=== PATIENT | male | born 1955 | race Caucasian/White ===

== ENCOUNTER 2017-07-25 09:57 | Day surgery (SDC) | payer BC, OTHER ==
[~2017-07-25 09:57] MED LIST: Lactated Ringers 1,000 ML IV SCH
[2017-07-25] MEDS ORDERED: fentaNYL 100 MCG/2 ML SDV ONE (10:32)
[2017-07-25] MEDS ORDERED: Propofol 200 MG/20 ML SDV ONE (10:32)
--- NOTE | 2017-07-25 18:42 | OR ---
PREOPERATIVE DIAGNOSIS: Upper esophageal mid throat discomfort. POSTOPERATIVE DIAGNOSIS: Upper esophageal mid throat discomfort. PROCEDURE PERFORMED: EGD. INDICATIONS: The patient is a 61-year-old male who has history of intermittent reflux disease. He also seems to have symptoms in the mid throat, upper esophagus, which he describes is an irritation, presents for EGD for further evaluation. PROCEDURE IN DETAIL: Done in the procedure room, sedation was given per anesthesia. The scope was introduced into this pharynx across the esophagus, into the stomach across the pylorus, into the first and second portion of the duodenum. The first and second portions of duodenum were normal. Scope was slowly withdrawn and retroflexed. Stomach itself was normal. GE junction was normal. No evidence of hiatal hernia. Scope was slowly withdrawn. There was moderate esophagitis at the level of the GE junction. The scope was withdrawn. The remainder of the way, the upper esophagus looked normal. FINAL DIAGNOSIS: Esophagitis. PLAN: At this point I suggested we are treating him for reflux disease. I suggest first trying out H2 dedrick and if that was unsuccessful, switching to proton pump inhibitor, try that for a month and see how he does with the symptoms. I have discussed this with his in detail. BKD: 07/25/2017 11:34:04 MODL: 07/25/2017 13:25:31 /[id number]
== END 2017-07-25 12:40 | disposition home or self-care (01) ==
LOC: VM.SDS 09:57
PROVIDERS: ATTEND Surgery
DX: K21.0 Gastro-esophageal reflux disease with esophagitis (principal); E78.00 Pure hypercholesterolemia, unspecified; Z79.82 Long term (current) use of aspirin; Z79.899 Other long term (current) drug therapy; Z87.891 Personal history of nicotine dependence
CPT/HCPCS: J2704; J3010; J7120